=== PATIENT | male | born 1985 | race Caucasian/White ===

== ENCOUNTER 2019-02-05 08:00 | Outpatient (RCR) | payer OTHER ==
[~2019-02-05 08:00] MED LIST: CARAFATE 1GM1 G PO
== END 2019-03-07 13:00 | disposition home or self-care (01) ==
LOC: WSPT 08:00
DX: M43.16 Spondylolisthesis, lumbar region (principal)

== ENCOUNTER 2019-04-25 12:32 | Emergency (ER) | payer SELFPAY ==
[~2019-04-25] VITALS: Ht 193 cm; Wt 86.4 kg
[2019-04-25 12:36] VITALS: BP 133/85; TEMP 98.6
[2019-04-25 13:29] VITALS: PULSE 94
== END 2019-04-25 13:27 | disposition home or self-care (01) ==
LOC: COL.ER 12:32
DX: S00.93XA Contusion of unspecified part of head, initial encounter (principal); V43.52XA Car driver injured in collision with other type car in traffic accident, initial encounter

== ENCOUNTER 2019-08-01 06:18 | Day surgery (SDC) | payer OTHER ==
[~2019-08-01] VITALS: Ht 190.5 cm; Wt 87.4 kg
[2019-08-01 06:45] VITALS: BP 130/97; PULSE 90; TEMP 98.5
[2019-08-01] MEDS ORDERED: PRIL40 PO (06:45)
[2019-08-01 10:15] VITALS: BP 144/75; PULSE 80; TEMP 99.2
--- NOTE | 2019-08-01 10:15 | NUR ---
[place] [facility] [place]. He is sitting up in bed, alert and oriented. Monitoring is applied - VSS and WNL on room air. He has three incisions with swiftset to the abdomen - they are clean, dry, intact. He denies any pain or nausea. His parents are brought to the bedside. He is offered and receives water and a muffin to eat. Call light in reach.
[2019-08-01 10:30] VITALS: BP 132/83; PULSE 82; TEMP 99
--- NOTE | 2019-08-01 10:30 | NUR ---
Patient is resting comfortably in room. He denies any pain, nausea, or need at this time. He is tolerating PO well.
[2019-08-01 10:45] VITALS: BP 130/77; PULSE 89; TEMP 99
--- NOTE | 2019-08-01 10:45 | NUR ---
Patient is resting comfortably in room. The room is very warm due to thermostat. Removed blankets for patient. Temperature is not far off from his admission temp of 98.5 and is trending down. VSS on room air. Denies any pain or nausea.
[2019-08-01 11:00] VITALS: TEMP 98.9
--- NOTE | 2019-08-01 11:00 | NUR ---
Escorted patient to the restroom where he voids and returns to room.
--- NOTE | 2019-08-01 11:25 | NUR ---
Patient has met discharge criteria. Discharge instructions discussed, denies any questions, and verbalizes understanding. PIV removed with catheter intact and hemostasis achieved. He changes to his clothing independently. He is escorted to the exit via wheelchair by staff. Discharged to home with ride in private vehicle at 1125.
[2019-08-01 15:17] VITALS: BP 144/75; PULSE 83
== END 2019-08-01 11:25 | disposition home or self-care (01) ==
LOC: SDCO 06:18
DX: K40.90 Unilateral inguinal hernia, without obstruction or gangrene, not specified as recurrent (principal); K21.9 Gastro-esophageal reflux disease without esophagitis
CPT/HCPCS: C1781; J0690; J1885; J2250; J2704; J2795; J3010; J7120

== ENCOUNTER → 2021-09-01 | Outpatient (CLI) | payer OTHER ==
[~2021-09-01] MED LIST changes: +PRIL40 PO
[2021-09-01 18:52] LABS: ALBUMIN 1.8 gm/dL (3.5-5.0); BILIRUBIN,TOTAL 0.2 mg/dL (0.2-1.2); CALCIUM 7.1 mg/dL (8.4-10.2); CREATININE, serum 1.31 mg/dL (0.72-1.25); POTASSIUM 3.9 mmol/L (3.5-4.5); TOTAL PROTEIN 5.8 gm/dL (6.2-8.1)
== END ==
LOC: COL.LAB 16:31
PROVIDERS: Nurse Practitioner
DX: R06.02 Shortness of breath (principal); R60.0 Localized edema

== ENCOUNTER 2021-12-17 12:51 | Outpatient (CLI) | payer OTHER ==
[~2021-12-17] VITALS: Ht 190.5 cm; Wt 86.0 kg
[2021-12-17 14:00] LABS: BASO % 0.2 % (0.0-2.0); EOS % 0.8 % (0.0-4.0); GRAN # 4.4 K/mm3 (1.4-6.5); GRAN % 83.4 % (42.2-75.2); HEMOGLOBIN 10.2 g/dl (13.5-18.0); LYMPH # 0.4 K/mm3 (1.2-3.4); LYMPH % 7.5 % (20.0-51.0); MEAN CELL VOLUME 84 fl (80.0-100.0); MEAN CORPUSCULAR HEMOGLOBIN 26 pg (27-31); MEAN CORPUSCULAR HGB CONC 31 g/dl (33.0-37.0); MEAN PLATELET VOLUME 9.6 fl (7.4-10.4); MONO # 0.4 K/mm3 (0.1-0.6); MONO % 7.7 % (1.7-9.3); PLATELET COUNT 347 K/mm3 (130-400); RED BLOOD COUNT 3.96 M/mm3 (4.20-5.60); REDCELL DISTRIBUTION WIDTH-CV 13.2 % (11.5-14.5)
[2021-12-17 14:01] LABS: HEMATOCRIT 33.4 % (42.0-52.0)
[2021-12-17 14:19] LABS: ALBUMIN 3.1 gm/dL (3.5-5.0); BILIRUBIN,TOTAL 0.2 mg/dL (0.2-1.2); CALCIUM 8.3 mg/dL (8.4-10.2); CREATININE, serum 0.81 mg/dL (0.72-1.25); POTASSIUM 3.1 mmol/L (3.5-4.5); TOTAL PROTEIN 6.9 gm/dL (6.2-8.1)
[2021-12-17] MEDS ORDERED: NATURAL IRON65 MG PO (14:51)
[2021-12-17] MEDS ORDERED: STELARA130 MG/26 IV (14:53)
--- NOTE | 2021-12-17 15:00 | NUR ---
LATE ENTRY: PT REMAINED IN OBSERVATION FOR 15 MINUTES AFTER INFUSION, AT THIS TIME PT HAD TOLERATED INFUSION WELL AND LEFT UNIT.
[2021-12-17 15:06] VITALS: BP 118/74; PULSE 68; TEMP 98.6
== END 2021-12-17 15:00 | disposition home or self-care (01) ==
LOC: EUO 12:51
PROVIDERS: Internal Medicine Gastroenterology
DX: Z51.81 Encounter for therapeutic drug level monitoring (principal)
CPT/HCPCS: J1200; J2930; J3358